=== PATIENT | male | born 1960 | race Caucasian/White ===

== ENCOUNTER 2021-11-26 17:57 | Emergency (ER) | payer OTHER, SELFPAY ==
[2021-11-26 18:51] LABS: #Basophils 0.1 thou/uL (0.0-0.2); #Eosinphils 0.5 thou/uL (0.0-0.7); #Lymphocytes 1.6 thou/uL (1.20-3.40); #Monocytes 0.5 thou/uL (0.11-0.59); #Neutrophils 3.7 thou/uL (1.40-6.50); %Basophils 1.4 % (0.0-1.0); %Eosinophils 7.8 % (0.0-10.0); %Lymphocytes 24.8 % (21.0-51.0); %Monocytes 7.5 % (0.0-10.0); %Neutrophils 58.4 % (42.0-75.0); Hemoglobin 12.7 g/dL (14.0-18.0); Mean Corpuscular HGB CONC 33.1 g/dL (32.0-36.0); Mean Corpuscular Hemoglobin 32.5 pg (27.0-31.0); Mean Corpuscular Volume 98.2 fL (78.0-98.0); Mean Platelet Volume 9.1 fL (7.4-10.4); Platelet Count 173 thou/uL (130-400); RBC Distribution Width 10.8 % (11.5-14.5); White Blood Cell (WBC) Count 6.3 thou/uL (4.8-10.8)
[2021-11-26 18:58] LABS: Prothrombin Time 13.3 sec (12.0-14.7)
[2021-11-26 19:07] LABS: ALT (SGPT) 17 U/L (8-55); AST (SGOT) 16 U/L (5-34); Alkaline Phosphatase 59 U/L (40-110); Anion Gap 17 mmol/L (10-20); BUN (Urea Nitrogen) 16 mg/dL (8.4-25.7); Bilirubin, Total 0.3 mg/dL (0.2-1.2); CK (CPK) 77 U/L (30-200); Calc. Creatinine Clearance 0 mL/min (70-130); Calcium 8.2 mg/dL (7.8-10.44); Carbon Dioxide 21 mmol/L (22-29); Chloride 107 mmol/L (98-107); Globulin 2.1 g/dL (2.4-3.5); Glucose 106 mg/dL (70-105); Potassium 3.9 mmol/L (3.5-5.1); Protein, Total 6.1 g/dL (6.0-8.3); Sodium 141 mmol/L (136-145)
[2021-11-26 20:45] LABS: SARS-CoV-2 NAA Rapid Test Not Detected (NotDetected)
== END 2021-11-26 21:24 | disposition short-term general hospital (02) ==
LOC: NAV ERS 17:57
DX: R47.81 Slurred speech (principal); R27.0 Ataxia, unspecified; E11.9 Type 2 diabetes mellitus without complications
CPT/HCPCS: 70450; 80053; 82550; 84484; 85025; 85610; 85730; 93005; 94760; U0002

== ENCOUNTER 2022-02-11 14:56 | Outpatient (CLI) | payer MEDICARE, OTHER | END 2022-02-11 14:57 | disposition home or self-care (01) | LOC: NAV RAD 14:56 | PROVIDERS: ATTEND Nurse Practitioner Family | DX: G81.91 Hemiplegia, unspecified affecting right dominant side (principal); R26.89 Other abnormalities of gait and mobility | CPT/HCPCS: 70450 ==

== ENCOUNTER 2023-11-26 05:51 | Emergency (ER) | payer MEDICARE, MEDICAID ==
[2023-11-26] MEDS ORDERED: Lorazepam 2 MG/ML VIAL ONE (06:43)
[2023-11-26] MEDS ORDERED: Cephalexin 250 MG CAP ONE (09:46)
== END 2023-11-26 10:10 ==
LOC: NAV ERS 05:51
DX: S02.2XXA Fracture of nasal bones, initial encounter for closed fracture (principal); R41.82 Altered mental status, unspecified; K04.7 Periapical abscess without sinus; E11.9 Type 2 diabetes mellitus without complications; I10 Essential (primary) hypertension; E78.5 Hyperlipidemia, unspecified; Z79.899 Other long term (current) drug therapy; W18.30XA Fall on same level, unspecified, initial encounter
CPT/HCPCS: 70450; 72125; 96374; J2060

== ENCOUNTER 2024-03-28 20:49 | Emergency (ER) | payer MEDICARE, MEDICAID | END 2024-03-28 23:55 | disposition home or self-care (01) | LOC: NAV ERS 20:49 | DX: S12.600A Unspecified displaced fracture of seventh cervical vertebra, initial encounter for closed fracture (principal); S60.222A Contusion of left hand, initial encounter; S00.83XA Contusion of other part of head, initial encounter; I10 Essential (primary) hypertension; E11.9 Type 2 diabetes mellitus without complications; F03.90 Unspecified dementia, unspecified severity, without behavioral disturbance, psychotic disturbance, mood disturbance, and anxiety; W18.30XA Fall on same level, unspecified, initial encounter; Y93.01 Activity, walking, marching and hiking; Y92.129 Unspecified place in nursing home as the place of occurrence of the external cause; Z87.891 Personal history of nicotine dependence; Z79.899 Other long term (current) drug therapy | CPT/HCPCS: 70450; 72125 ==

== ENCOUNTER 2024-03-29 21:47 | Emergency (ER) | payer MEDICARE, MEDICAID ==
[2024-03-29] MEDS ORDERED: Midazolam HCl 2 mg/2 ml Vial ONE (22:21)
[2024-03-29] MEDS ORDERED: Lidocaine 1% w/Epinephrine 1:100K 20 ML VIAL ONE (23:04)
[2024-03-29] MEDS ORDERED: Bacitracin 1 PK ONE (23:29)
== END 2024-03-30 00:15 ==
LOC: NAV ERS 21:47
DX: S09.90XA Unspecified injury of head, initial encounter (principal); S01.111A Laceration without foreign body of right eyelid and periocular area, initial encounter; F03.90 Unspecified dementia, unspecified severity, without behavioral disturbance, psychotic disturbance, mood disturbance, and anxiety; E11.9 Type 2 diabetes mellitus without complications; I10 Essential (primary) hypertension; W19.XXXA Unspecified fall, initial encounter; Z95.0 Presence of cardiac pacemaker
CPT/HCPCS: 12013; 70450; 71045; 72125; 96374; J2250